=== PATIENT | female | born 2000 | race Caucasian/White ===

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

== ENCOUNTER 2019-11-28 14:35 | Outpatient (CLI) | payer BC, SELFPAY ==
[2019-12-04 16:28] LABS: Factor V Leiden(R506Q) Mut Heterozygous (Negative)
== END 2019-11-28 14:55 ==
PROVIDERS: PCP Pediatrics; Visit Provider Obstetrics & Gynecology
DX: Z13.0 Encounter for screening for diseases of the blood and blood-forming organs and certain disorders involving the immune mechanism
CPT/HCPCS: 36415; 81241

== ENCOUNTER 2019-12-07 07:14 | Outpatient (CLI) | payer BC, SELFPAY ==
--- NOTE | 2019-12-07 08:00 | DI.US_ITS ---
TECHNIQUE: Ultrasound abdomen performed using standard protocol. COMPARISON: No exams were available for comparison FINDINGS: ABDOMINAL AORTA AND IVC: Visualized portions normal caliber. PANCREAS: Normal where visualized. LIVER: Normal. Hepatopedal flow in the Portal Vein. GALLBLADDER: No evidence of cholelithiasis. No evidence of wall thickening. No pericholecystic fluid identified. BILIARY SYSTEM: Common bile duct measures 2 mm. No intrahepatic biliary ductal dilation. BENNETT'S SIGN: Negative. KIDNEYS: Kidneys are symmetric in size. No evidence of renal calculi. No evidence of hydronephrosis. No renal mass or cyst identified. SPLEEN: Not enlarged. ASCITES: None seen. IMPRESSION: Normal sonographic appearance of the upper abdomen. DATA REPOSITORY:
== END 2019-12-07 07:34 ==
PROVIDERS: PCP Pediatrics; Visit Provider Obstetrics & Gynecology
DX: R10.13 Epigastric pain (principal)
CPT/HCPCS: 76700

== ENCOUNTER 2019-12-07 15:17 | Outpatient (REF) | payer BC, SELFPAY ==
[2019-12-10 14:23] LABS: Chlamydia Result Negative (Negative); GC Result Negative (Negative)
== END 2019-12-07 15:37 ==
LOC: LBN 15:17
PROVIDERS: PCP Pediatrics; Visit Provider Nurse Practitioner Family
DX: Z11.3 Encounter for screening for infections with a predominantly sexual mode of transmission (principal)
CPT/HCPCS: 87491; 87591